=== PATIENT | male | born 1930 | race Caucasian/White ===

== ENCOUNTER 2018-03-10 13:42 | Emergency (ER) | payer MEDICARE ==
--- NOTE | 2018-03-10 14:37 | RAD ---
RIGHT ANKLE 3 VIEWS: Date: 03/10/18 HISTORY: Injury, right ankle pain. FINDINGS/IMPRESSION: The ankle mortise is maintained. There is a comminuted fracture involving the calcaneus. POS: [facility]
--- NOTE | 2018-03-10 14:40 | RAD ---
LEFT ELBOW 4 VIEWS: Date: 03/10/18 HISTORY: Fell off ladder, left elbow pain. FINDINGS/IMPRESSION: No acute fracture or dislocation is identified. POS: [facility]
--- NOTE | 2018-03-10 14:43 | RAD ---
RIGHT ELBOW 4 VIEWS: Date: 03/10/18 HISTORY: Fell off ladder, injury, right elbow pain. FINDINGS/IMPRESSION: A small olecranon spur is present. No acute fracture or dislocation identified. Mild degenerative kita nges are present. POS: [facility]
[2018-03-10] MEDS ORDERED: Morphine 4 MG/ML Carpuject ONE (16:45)
--- NOTE | 2018-03-10 17:17 | CT ---
CT OF THE RIGHT FOOT WITHOUT CONTRAST 03/10/18 INDICATION: History of fall with right foot injury. COMPARISON: Right ankle radiograph dated 03/10/18. FINDINGS: There is a heavily comminuted intra-articular calcaneal fracture predominantly involving the posterio r calcaneal facet/tuberosity and body. The posterior calcaneal facet is depressed and anteriorly [place] on image 38 of series 4. The articular surface is depressed approximately 5 mm with the facet ben face rotated anteriorly 45 degrees. There is extensive comminution involving the lateral calcaneal wa ll. There is a large fracture fragment involving the sustentaculum juan carlos. There is no fracture extensi on into the middle subtalar or anterior facets. The talar body appears intact. The midfoot is intact. The visualized aspects of the Lisfranc joint appears within normal limits. The distal tibial and lat eral malleolus are intact. There is extensive soft tissue swelling of the hindfoot and ankle. IMPRESSION: Heavily comminuted intra-articular calcaneal fracture with extensive comminution, depression, and ang ulation involving the posterior calcaneal facet. The posterior calcaneal facet is depressed approxima tely 5 mm and rotated anteriorly approximately 45 degrees. There is extensive comminution involving t he lateral calcaneal wall. There is fracture extension through the base of the sustentaculum juan carlos wit hout extension into the middle subtalar articulation, nor is there extension into the anterior calcan eal facet. POS: [facility]
== END 2018-03-10 17:55 | disposition home or self-care (01) ==
LOC: NAV ERS 13:42
DX: S92.061A Displaced intraarticular fracture of right calcaneus, initial encounter for closed fracture (principal); I10 Essential (primary) hypertension; E78.5 Hyperlipidemia, unspecified; Z79.899 Other long term (current) drug therapy; W11.XXXA Fall on and from ladder, initial encounter
CPT/HCPCS: 29515; 96372; J2270